=== PATIENT | male | born 1980 | race African-American/Black ===

== ENCOUNTER → 2016-07-08 | Outpatient (CLI) | payer MEDICAID | END | disposition home or self-care (01) | LOC: RAD 14:15 | PROVIDERS: ATTEND Internal Medicine Nephrology | DX: M79.674 Pain in right toe(s) (principal) | CPT/HCPCS: 73660 ==

== ENCOUNTER 2024-12-04 15:49 | Inpatient (IN) | payer OTHER, MEDICAID ==
[~2024-12-04] VITALS: Ht 185.4 cm; Wt 121.1 kg
[2024-12-04 16:00] VITALS: O2SAT 96
[2024-12-04 16:52] LABS: BASOPHILS % 0.5 % (0.0-2.0); EOSINOPHILS % 0.9 % (0.0-5.0); HEMATOCRIT. 41.8 % (42.0-52.0); HEMOGLOBIN. 13.7 g/dL (14.0-18.0); LYMPHOCYTES % 12.2 % (20.0-50.0); MEAN PLATELET VOLUME 7.7 fl (7.4-10.4); MONOCYTES % 5.6 % (2.0-8.0); NEUTROPHILS % 80.8 % (40.0-76.0); PLATELET 346 x1000/uL (130-400); RED BLOOD CELL COUNT 4.87 mill/uL (4.7-6.1); RED CELL DISTRIBUTION WIDTH 14.3 % (11.6-14.6)
[2024-12-04 17:04] LABS: CREATININE 1.2 mg/dL (0.6-1.3); UREA NITROGEN BLOOD 10 mg/dL (9-23)
[2024-12-04 17:05] LABS: ETHANOL BLOOD < 10 mg/dL (<10)
[2024-12-04 17:11] LABS: TROPONIN I HIGH SENSITIVITY 94 ng/L (3.0-53)
[2024-12-04] MEDS: NITROGLYCERIN 0.4MG TABLET SL SL PRN ×2 (17:39→20:51)
[2024-12-04] MEDS ORDERED: ONDANSETRON HCL 4MG/2ML INJ IV PRN (18:15)
[2024-12-04] MEDS ORDERED: ACETAMINOPHEN 325MG TABLET PO PRN ×2 (18:15)
[2024-12-04] MEDS ORDERED: IPRATROPIUM/ALBUTEROL 0.5-3(2.5)MG/3ML NEB HHN PRN (18:15)
[2024-12-04] MEDS ORDERED: DEXTROSE 50% WATER 50ML SYRINGE IV PRN (18:15)
[2024-12-04 18:46] LABS: *AMPHETAMINES SCREEN URINE NEGATIVE (NEGATIVE); *BARBITURATES SCREEN URINE NEGATIVE (NEGATIVE); *BENZODIAZEPINES SCREEN URINE NEGATIVE (NEGATIVE); *COCAINE SCREEN URINE NEGATIVE (NEGATIVE); METHADONE URINE SCREEN NEGATIVE (NEGATIVE); OPIATES URINE SCREEN NEGATIVE (NEGATIVE)
[2024-12-04 18:47] LABS: CANNABINOID URINE SCREEN NEGATIVE (NEGATIVE); ECSTASY MDMA SCREEN URINE CONF.TEST INDICATED (NEGATIVE); PHENCYCLIDINE URINE SCREEN NEGATIVE (NEGATIVE)
[2024-12-04] MEDS ORDERED: MAGNESIUM 1 G PREMIX 100 ML IV NR (19:00)
[2024-12-04] MEDS: ENOXAPARIN 120MG/0.8ML SYR SUBCUT SCH (19:10)
[2024-12-04] MEDS: POTASSIUM CHLORIDE 20MEQ TABLET SR PO NR (19:10)
[2024-12-04 19:27] LABS: INR 1.0
[2024-12-04 20:15] VITALS: BP 141/110; PULSE 75; RESP 12; TEMP 36.6404
[2024-12-04 20:20] VITALS: BP 141/110; PULSE 71; RESP 12; TEMP 36.6; O2SAT 98
[2024-12-04] MEDS: FERROUS SULFATE 300MG/5ML UDC PO SCH (20:40)
[2024-12-04] MEDS: BUPROPION HCL 150MG TABLET XL 24HR PO SCH (20:40)
[2024-12-04] MEDS: PANTOPRAZOLE SODIUM 40 MG/VIAL IV SCH (20:40)
[2024-12-04] MEDS: ATORVASTATIN CALCIUM 40MG TABLET PO SCH (20:44)
[2024-12-04] MEDS: MAGNESIUM 1 G PREMIX 100 ML IV NR (20:44)
[2024-12-04] MEDS: HYDRALAZINE 20MG/ML VIAL IV PRN (20:44)
[2024-12-04] MEDS: BLOOD SUGAR DIAGNOSTIC STRIP TEST SCH (20:49)
[2024-12-04] MEDS: INSULIN LISPRO 100 UNITS/ML SUBCUT SCH (20:49)
[2024-12-04] MEDS: MORPHINE SULFATE 4 MG/ML INJ (FOR IV/IM USE) IV PRN (23:27)
[2024-12-04] MEDS: MELATONIN 3MG TABLET PO PRN (23:27)
[2024-12-04] MEDS ORDERED: NALOXONE HCL 0.4MG/ML VIAL IV PRN (23:30)
[2024-12-05] VITALS: BP 144/94; PULSE 83; RESP 22; TEMP 36.8; O2SAT 95
[2024-12-05 00:26] LABS: CREATINE KINASE MB FRACTION 22.6 ng/mL (0.5-3.6)
[2024-12-05 00:33] LABS: TROPONIN I HIGH SENSITIVITY 1681 ng/L (3.0-53)
[2024-12-05 04:24] VITALS: BP 119/84; PULSE 83; RESP 15; TEMP 37; O2SAT 97
[2024-12-05] MEDS ORDERED: LISI2.5T47 MT (06:19)
[2024-12-05] MEDS ORDERED: EZET10TA81 MT (06:19)
[2024-12-05] MEDS ORDERED: BUPR-102 MT (06:19)
[2024-12-05] MEDS ORDERED: FERR325T6 MT (06:19)
[2024-12-05] MEDS ORDERED: SERT50TA MT (06:19)
[2024-12-05] MEDS ORDERED: HYDR12.54 MT (06:19)
[2024-12-05] MEDS ORDERED: POTA-205 MT (06:19)
[2024-12-05] MEDS ORDERED: ATOR-388 MT (06:19)
[2024-12-05] MEDS ORDERED: AMLO10TA80 MT (06:19)
[2024-12-05 07:17] LABS: CREATINE KINASE MB FRACTION 66.5 ng/mL (0.5-3.6)
[2024-12-05 07:22] LABS: CREATININE 1.1 mg/dL (0.6-1.3); T4 FREE 1.16 ng/dL (0.89-1.76); TRIGLYCERIDE 131 mg/dL (0-150); UREA NITROGEN BLOOD 6 mg/dL (9-23)
[2024-12-05 07:23] LABS: LDL CHOLESTEROL 70 mg/dL (5-100)
[2024-12-05 07:27] LABS: BASOPHILS % 0.4 % (0.0-2.0); EOSINOPHILS % 1.1 % (0.0-5.0); HEMATOCRIT. 43.5 % (42.0-52.0); HEMOGLOBIN. 14.2 g/dL (14.0-18.0); LYMPHOCYTES % 27.5 % (20.0-50.0); MEAN PLATELET VOLUME 8.1 fl (7.4-10.4); MONOCYTES % 7.5 % (2.0-8.0); NEUTROPHILS % 63.5 % (40.0-76.0); PLATELET 346 x1000/uL (130-400); RED BLOOD CELL COUNT 5.07 mill/uL (4.7-6.1); RED CELL DISTRIBUTION WIDTH 14.5 % (11.6-14.6)
[2024-12-05 07:52] LABS: HEPATITIS C AB NON REACTIVE (Neg) (Negative)
[2024-12-05 08:00] VITALS: BP 138/78; PULSE 83; RESP 17; TEMP 36.8; O2SAT 96
[2024-12-05] MEDS: EZETIMIBE 10MG TABLET PO SCH (08:38)
[2024-12-05] MEDS: HYDROCHLOROTHIAZIDE 12.5MG CAPSULE PO SCH (08:38)
[2024-12-05] MEDS: AMLODIPINE 10MG TABLET PO SCH (08:39)
[2024-12-05] MEDS: LISINOPRIL 10MG TABLET PO SCH (08:39)
[2024-12-05] MEDS: SERTRALINE HCL 50MG TABLET PO SCH (08:39)
[2024-12-05] MEDS: POTASSIUM CHLORIDE 20MEQ TABLET SR PO SCH (08:39)
[2024-12-05 08:42] LABS: TROPONIN I HIGH SENSITIVITY 9398 ng/L (3.0-53)
[2024-12-05] MEDS ORDERED: ENOXAPARIN 30MG/0.3ML SYR SUBCUT SCH (09:00)
[2024-12-05] MEDS: ENOXAPARIN 120MG/0.8ML SYR SUBCUT SCH (09:00)
[2024-12-05 12:00] VITALS: BP 134/97; PULSE 82; RESP 18; TEMP 36.8; O2SAT 95
[2024-12-05] MEDS ORDERED: VERAPAMIL HCL 2.5 MG/1 ML 2ML VIAL IV ONE (14:49)
[2024-12-05] MEDS ORDERED: IODIXANOL 320MG/ML 100 ML BOTTLE IV ONE ×3 (14:50→16:32)
[2024-12-05] MEDS ORDERED: HEPARIN 1000 UNITS/ML 10ML ONE ×2 (14:50→15:30)
[2024-12-05] MEDS ORDERED: LIDOCAINE HCL 1% 20ML VIAL ONE (14:50)
[2024-12-05] MEDS ORDERED: MIDAZOLAM HCL 2 MG/2 ML VIAL ONE ×2 (15:01→15:47)
[2024-12-05] MEDS ORDERED: FENTANYL CITRATE/PF 50MCG/ML 2ML VIAL ONE ×2 (15:01→15:47)
[2024-12-05] MEDS ORDERED: TICAGRELOR 90 MG TABLET PO ONE (15:33)
[2024-12-05] MEDS ORDERED: IODIXANOL 320 MG/ML 150ML BOTTLE IV ONE (17:34)
[2024-12-05] MEDS ORDERED: ASPIRIN 325MG TABLET ONE (18:06)
[2024-12-05] MEDS: SODIUM CHLORIDE 0.45% 1,000 ML IV SCH (19:26)
[2024-12-05 20:00] VITALS: BP 140/80; PULSE 83; RESP 18; TEMP 36.7; O2SAT 95
[2024-12-06] VITALS: BP 128/93; PULSE 81; RESP 20; TEMP 36.9; O2SAT 96
[2024-12-06 00:56] LABS: TROPONIN I HIGH SENSITIVITY 22253 ng/L (3.0-53)
[2024-12-06 04:18] VITALS: BP 125/90; PULSE 83; RESP 16; TEMP 36.7; O2SAT 96
[2024-12-06 08:00] VITALS: BP 121/81; PULSE 84; RESP 17; TEMP 36.8; O2SAT 99
[2024-12-06 08:09] LABS: BASOPHILS % 0.3 % (0.0-2.0); EOSINOPHILS % 0.9 % (0.0-5.0); HEMATOCRIT. 43.9 % (42.0-52.0); HEMOGLOBIN. 14.4 g/dL (14.0-18.0); LYMPHOCYTES % 21.8 % (20.0-50.0); MEAN PLATELET VOLUME 8.1 fl (7.4-10.4); MONOCYTES % 8.4 % (2.0-8.0); NEUTROPHILS % 68.6 % (40.0-76.0); PLATELET 345 x1000/uL (130-400); RED BLOOD CELL COUNT 5.07 mill/uL (4.7-6.1); RED CELL DISTRIBUTION WIDTH 14.4 % (11.6-14.6)
[2024-12-06 08:37] LABS: CREATININE 1.0 mg/dL (0.6-1.3); UREA NITROGEN BLOOD 9 mg/dL (9-23)
[2024-12-06] MEDS: ASPIRIN 81MG TABLET PO SCH (09:04)
[2024-12-06] MEDS: TICAGRELOR 90 MG TABLET PO SCH (09:05)
[2024-12-06 09:32] LABS: TROPONIN I HIGH SENSITIVITY 20568 ng/L (3.0-53)
[2024-12-06] MEDS ORDERED: LIP40 PO (11:34)
[2024-12-06] MEDS ORDERED: ASPI-1160 PO (11:34)
[2024-12-06] MEDS ORDERED: TICA90TA PO (11:34)
[2024-12-06] MEDS ORDERED: METO-396 PO (11:34)
[2024-12-06 12:06] VITALS: BP 121/82; PULSE 84; RESP 17; TEMP 98.3
== END 2024-12-06 13:40 | disposition home or self-care (01) | DRG 322 ==
LOC: ER 15:57 → 3WST 17:56 → EDBEDREQ 18:03 → EDBEDREQTM 18:03 → ENRESERV 19:04
PROVIDERS: ADMIT Internal Medicine; ATTEND Internal Medicine
PROC: 4A023N7 Measurement of Cardiac Sampling and Pressure, Left Heart, Percutaneous Approach (ICD-10-PCS; principal; 2024-12-06)
PROC: 027135Z Dilation of Coronary Artery, Two Arteries with Two Drug-eluting Intraluminal Devices, Percutaneous Approach (ICD-10-PCS; 2024-12-06)
PROC: B2111ZZ Fluoroscopy of Multiple Coronary Arteries using Low Osmolar Contrast (ICD-10-PCS; 2024-12-06)
DX: I21.4 Non-ST elevation (NSTEMI) myocardial infarction (principal); E11.9 Type 2 diabetes mellitus without complications; E78.5 Hyperlipidemia, unspecified; E66.9 Obesity, unspecified; F32.A Depression, unspecified; I10 Essential (primary) hypertension; I25.10 Atherosclerotic heart disease of native coronary artery without angina pectoris; Z79.4 Long term (current) use of insulin; Z79.85 Long-term (current) use of injectable non-insulin antidiabetic drugs; Z79.899 Other long term (current) drug therapy; Z86.73 Personal history of transient ischemic attack (TIA), and cerebral infarction without residual deficits; Z68.35 Body mass index [BMI] 35.0-35.9, adult
CPT/HCPCS: 36415; 71045; 80048; 80061; 80305; 80320; 82550; 82553; 82962; 83036; 83880; 84439; 84443; 84484; 85025; 85347; 86705; 87340; 92928; 92929; 93005; 93458; 99291; A4606; C1725; C1769; C1874; C1887; C1893; J0360; J1644; J1650; J2003; J2250; J2270; J2470; J3010; J3475; J3490; Q9967; G0480; J8499